=== PATIENT | male | born 1990 | race Two or more races ===

== ENCOUNTER 2016-04-30 20:58 | Emergency (ER) | payer OTHER ==
--- NOTE | 2016-04-30 21:27 | EDPHY ---
H & P Time Seen by Provider: 04/30/16 21:18 HPI/ROS: CHIEF COMPLAINT: Anxiety HISTORY OF PRESENT ILLNESS: This patient is a 25 year old male with a history of anxiety with panic attacks who presents to the Emergency Department by EMS complaining of an acute episode of anxiety while in a therapy session tonight. He has been seen by a psychiatrist previously who provided him with a script for Xanax which has helped to alleviate his symptoms. Today, he was in a group therapy session when he felt acutely anxious. He took Xanax prior to transport to the ED. Upon arrival, he states that he is feeling much better. He denies any paresthesias, shortness of breath, confusion, or additional complaints. He denies any recent infections. No additional medical history. REVIEW OF SYSTEMS: Constitutional: No fever, no chills Eyes: No visual changes ENT: No sore throat Respiratory: No cough, no shortness of breath Cardiac: No chest pain Gastrointestinal: No nausea, no vomiting, no abdominal pain Genitourinary: No hematuria, no dysuria Musculoskeletal: No leg pain or swelling Skin: No rash Neurological: No headache, no numbness, no weakness Psychiatric: +anxiety, resolved Past Medical/Surgical History: Generalized anxiety disorder. Social History: Recently came to [place] following protesting at [employer] against the [employer]. Physical Exam: General Appearance: Alert, mildly somnolent, no distress Eyes: Pupils equal and round, no conjunctival pallor or injection ENT, Mouth: Mucous membranes moist Neck: Normal inspection Respiratory: Lungs are clear to auscultation Cardiovascular: Regular rate and rhythm Gastrointestinal: Abdomen is soft and non- tender Neurological: A&O, nonfocal, normal gait Skin: Warm and dry, no rash Extremities: Nontender, no pedal edema Psychiatric: Mood and affect normal Constitutional: Initial Vital Signs Temperature (C) 36.6 C 04/30/16 21:00 Heart Rate 85 04/30/16 21:00 Respiratory Rate 17 04/30/16 21:00 Blood Pressure 115/75 04/30/16 21:00 O2 Sat (%) 92 04/30/16 21:00 O2 Delivery Mode Room Air Allergies/Adverse Reactions: No Known Allergies Allergy (Unverified 04/30/16 21:20) Home Medications: Medication Instructions Recorded Antidepressant 04/30/16 Xanax 1 MG (*) 04/30/16 Medical Decision Making ED Course/Re-evaluation: The patient's symptoms have completely resolved at time of examination. I discussed with him recommendations for addressing panic attacks and anxiety. He understands return precautions and feels comfortable going home at this time. Departure - Departure Disposition: Home, Routine, Self-Care Clinical Impression: Anxiety Condition: Good Instructions: Anxiety (ED) Additional Instructions: 1. Continue to take Xanax as prescribed for anxiety. As we discussed, you may wish to take 1/2 of a tablet to address anxiety without causing sleepiness. 2. Follow-up with [facility] or [facility] if you continue to experience episodes of anxiety to discuss further treatment options. 3. Return to the Emergency Department if you experience heart palpitations, difficulty breathing, thoughts of hurting yourself or others, or other serious concerns. Referrals: [facility] [Outside] - As per Instructions [facility] [Outside] - As per Instructions Report Scribed for: Xiomy Serra Report Scribed by: Almita Pérez Date of Report: 04/30/16 Time of Report: 21:22 Physician Review and Approval Statement: 04/30/16 21:22 Portions of this note were transcribed by a medical claims specialist. I personally performed a history, physical exam, medical decision making, and confirmed accuracy of information the transcribed note.
[2016-04-30 22:20] VITALS: BP 116/62; PULSE 70; RESP 16; TEMP 98.6; O2SAT 93
== END 2016-04-30 22:20 | disposition home or self-care (01) ==
DX: F41.9 Anxiety disorder, unspecified (principal)